=== PATIENT | female | born 1990 | race Caucasian/White ===

== ENCOUNTER 2022-10-21 11:16 | Emergency (ER) | payer OTHER ==
[~2022-10-21] VITALS: Ht 170.2 cm; Wt 111.1 kg
--- NOTE | 2022-10-21 11:25 | NUR ---
RECEIVED PT 32 Y[facility] FEM[facility] AND ALERT NO WEEKNESS C/O HEADEACH WHEN MOVE HERE HEAD FROM SIDE TO SIDE
--- NOTE | 2022-10-21 12:20 | NUR ---
SEEN BY DR. JOHNSON
[2022-10-21] MEDS ORDERED: IV NS 0.9% 1,000 ML IV ONE (12:30)
--- NOTE | 2022-10-21 12:30 | NUR ---
BLOOD ROW BY LAB TACH
[2022-10-21 13:21] LABS: BASOPHILS % (AUTO) 0.2 % (0.0-2.0); EOSINOPHILS % (AUTO) 0.4 % (0.0-6.0); HEMATOCRIT 42 % (33-45); HEMOGLOBIN 13.6 g/dL (11.5-14.8); LYMPHOCYTES % (AUTO) 13.2 % (20.0-44.0); MEAN CORPUSCULAR HGB CONC 33 g/dl (31.0-36.0); MEAN CORPUSCULAR VOLUME 96 fL (82-100); MONOCYTES # (AUTO) 0.4 K/uL (0.1-1.30); MONOCYTES % (AUTO) 5.6 % (2.0-12.0); NEUTROPHILS # (AUTO) 6.3 K/uL (1.8-8.9); NEUTROPHILS % (AUTO) 80.6 % (43.0-81.0); PLATELET COUNT (AUTO) 226 K/uL (150-450); RED BLOOD CELL COUNT(AUTO) 4.32 MIL/uL (4.0-5.2); WHITE BLOOD COUNT (AUTO) 7.9 K/uL (4.3-11.0)
--- NOTE | 2022-10-21 13:30 | NUR ---
UA SENT TO LAB
[2022-10-21 13:33] LABS: CALCIUM, SERUM 9.1 mg/dL (8.5-10.1); CREATININE 0.9 mg/dL (0.6-1.3); MAGNESIUM 2.2 mg/dL (1.8-2.4); POTASSIUM 4.2 mmol/L (3.5-5.1)
[2022-10-21] MEDS ORDERED: ONDANSETRON HCL/PF 4 MG/2 ML VIAL IV ONE (14:00)
[2022-10-21] MEDS ORDERED: ONDANSETRON HCL/PF 4 MG/2 ML VIAL ONE (14:06)
--- NOTE | 2022-10-21 14:35 | NUR ---
resting and comfrtale diness any dizzness
--- NOTE | 2022-10-21 15:50 | NUR ---
IV removed. Catheter intact and site benign. Pressure and 4x4 applied to site. No bleeding noted.
--- NOTE | 2022-10-21 15:52 | NUR ---
Patient discharged to home in stable condition. Written and verbal after care instructions given. Patient verbalizes understanding of instruction.
[2022-10-21 16:07] VITALS: BP 107/75
== END 2022-10-21 15:52 | disposition home or self-care (01) ==
LOC: ER 11:18
DX: R55 Syncope and collapse (principal)
CPT/HCPCS: 99285; 96374; 96361; 93005; 85025; 80048; 83735; 84703; 36415; 82962; 84702; J2405; J7030